=== PATIENT | female | born 1940 | race Caucasian/White ===

== ENCOUNTER 2020-12-19 15:17 | Inpatient (IN) | payer MEDICARE, OTHER ==
[~2020-12-19] VITALS: Ht 152.4 cm; Wt 112.0 kg
[2020-12-19 16:27] LABS: HEMOGLOBIN 13.2 gm/dl (12.3-15.3); RED BLOOD COUNT 4.35 M/UL (4.00-5.10); WHITE BLOOD COUNT 10.3 K/UL (4.5-11.0)
[2020-12-19 16:56] LABS: BUN/CREATININE RATIO 24 (0-10)
[2020-12-19] MEDS ORDERED: TOPROL XL25 MG PO (18:17)
[2020-12-20 04:59] LABS: HEMOGLOBIN 12.1 gm/dl (12.3-15.3); RED BLOOD COUNT 4.01 M/UL (4.00-5.10)
[2020-12-20 05:05] LABS: WHITE BLOOD COUNT 4.2 K/UL (4.5-11.0)
[2020-12-20 05:20] LABS: BUN/CREATININE RATIO 29 (0-10)
[2020-12-21 06:55] LABS: HEMOGLOBIN 12.1 gm/dl (12.3-15.3); RED BLOOD COUNT 4.17 M/UL (4.00-5.10)
[2020-12-21 07:02] LABS: WHITE BLOOD COUNT 11.1 K/UL (4.5-11.0)
--- NOTE | 2020-12-22 18:11 | NUR ---
[facility] CATH TAKEN OUT. PT HAD 1300ML OUT OF THE CATH.
--- NOTE | 2020-12-23 09:52 | NUR ---
Pt. was started complaining of chest pain around 9:17, called Dr. Miller around 9:20 and he gave orders for EKG, Troponin now and in 6 hrs, and nitro per protocol, as well as Tele and spo2.
[2020-12-23 10:19] LABS: HEMOGLOBIN 13.7 gm/dl (12.3-15.3); RED BLOOD COUNT 4.53 M/UL (4.00-5.10); WHITE BLOOD COUNT 9.7 K/UL (4.5-11.0)
[2020-12-24 03:47] LABS: RED BLOOD COUNT 4.34 M/UL (4.00-5.10)
[2020-12-24 03:52] LABS: WHITE BLOOD COUNT 6.5 K/UL (4.5-11.0)
[2020-12-24] MEDS ORDERED: PROVENTIL HFA6.7 GM INH (11:38)
[2020-12-24] MEDS ORDERED: FLONASE 0.05% N16 GM (11:38)
[2020-12-24] MEDS ORDERED: POLYETHYLENE GL17 GM PO (11:38)
[2020-12-24] MEDS ORDERED: DOCUSATE SODIU100 MG PO (11:38)
[2020-12-24] MEDS ORDERED: SPIRIVA RESPIMAT4 GM INH (11:38)
[2020-12-24] MEDS ORDERED: FUROSEMIDE40 MG PO (11:38)
[2020-12-24] MEDS ORDERED: LOPRESSOR 50 MG50 MG PO (11:38)
[2020-12-24] MEDS ORDERED: LISINOPRIL5 MG PO (11:38)
[2020-12-24] MEDS ORDERED: ASPIRIN 325MG325 MG PO (11:38)
== END 2020-12-24 16:58 | disposition home or self-care (01) | DRG 291 ==
LOC: ER1 15:17 → CDU 17:39 → MED SURG 4 12-20 14:55
PROVIDERS: Preventive Medicine Occupational Medicine; ADMIT Internal Medicine
DX: I11.0 Hypertensive heart disease with heart failure (principal); J96.01 Acute respiratory failure with hypoxia; J96.02 Acute respiratory failure with hypercapnia; J44.1 Chronic obstructive pulmonary disease with (acute) exacerbation; Z68.42 Body mass index [BMI] 45.0-49.9, adult; I50.33 Acute on chronic diastolic (congestive) heart failure; E66.01 Morbid (severe) obesity due to excess calories; G47.33 Obstructive sleep apnea (adult) (pediatric); E03.9 Hypothyroidism, unspecified; E11.9 Type 2 diabetes mellitus without complications; Z90.49 Acquired absence of other specified parts of digestive tract; Z90.710 Acquired absence of both cervix and uterus; F17.210 Nicotine dependence, cigarettes, uncomplicated; K59.00 Constipation, unspecified; Z20.822 Contact with and (suspected) exposure to COVID-19
CPT/HCPCS: ECHO; 0240U; 36415; 36600; 71045; 80048; 80053; 81001; 82550; 82553; 82803; 83605; 83690; 83874; 83880; 84439; 84443; 84484; 85025; 85610; 85652; 85730; 86140; 87086; 93005; 93306; 93970; 94640; 94664; 94760; 96365; 96366; 96375; 99285; A6212; J0456; J1100; J1650; J1940; J1956; J2930